=== PATIENT | female | born 1955 | race Caucasian/White ===

== ENCOUNTER → 2018-09-20 | Outpatient (CLI) | payer OTHER ==
[~2018-09-20] MED LIST: CIPR500 PO; CITA20 PO; CYCL10 PO; FLUT44OIA IH; HYDACE10B PO
== END ==
LOC: LAB SHORT 15:52 → LAB UCHC 15:52 → LAB 15:52
DX: L03.115 Cellulitis of right lower limb (principal)
CPT/HCPCS: 87070; 87075; 87076; 87205

== ENCOUNTER → 2019-10-26 | Outpatient (CLI) | payer OTHER ==
[~2019-10-26] MED LIST changes: +ONDA4ODT MM
[2019-10-26 18:46] LABS: BASOPHILS ABSOLUTE AUTO 0.06 K/mm3 (0.00-0.23); BASOPHILS PERCENT AUTO 1 % (0-2); EOSINOPHILS ABSOLUTE AUTO 0.33 K/mm3 (0.00-0.68); EOSINOPHILS PERCENT AUTO 3 % (0-6); Hematocrit 44.1 % (33.0-51.0); Hemoglobin 14.1 g/dL (11.5-16.0); IMMATURE GRAN PERCENT AUTO 1 % (0-1); LYMPHOCYTES ABSOLUTE AUTO 1.81 K/mm3 (0.84-5.20); LYMPHOCYTES PERCENT AUTO 17 % (21-46); MONOCYTES ABSOLUTE AUTO 0.51 K/mm3 (0.16-1.47); MONOCYTES PERCENT AUTO 5 % (4-13); Mean Corpuscular HGB 32.4 pg (26.0-34.0); Mean Corpuscular Volume 101 fL (80-100); Mean Platelet Volume 11.6 fL (9.1-12.4); NEUTROPHILS ABSOLUTE AUTO 7.81 K/mm3 (1.96-9.15); NEUTROPHILS PERCENT AUTO 74 % (41-73); Platelet Count 248 K/mm3 (150-400); RDW Coefficient Variation 13.4 % (11.7-14.2); RDW Standard Deviation 50.5 fL (35.1-46.3); Red Blood Cell Count 4.35 M/mm3 (3.80-5.20); White Blood Cell Count 10.62 K/mm3 (4.00-11.30)
[2019-10-26 19:45] LABS: Albumin, Blood 4.1 g/dL (3.4-5.0); Bilirubin, Direct 0.1 mg/dL (0.0-0.3); Bilirubin, Indirect 0.2 mg/dL (0.1-0.7); Bilirubin, Total 0.3 mg/dL (0.1-1.0); Globulin, Blood 4.2 g/dL (2.2-4.0); Total Protein, Blood 8.3 g/dL (6.4-8.2)
[2019-10-27 09:10] LABS: HBSAG SCREEN Negative (Negative); HEP A AB, IGM Negative (Negative); HEP B CORE AB, IGM Negative (Negative); HEP C VIRUS AB >11.0 (0.0-0.9)
== END ==
LOC: LAB SHORT 17:53 → LAB 17:53
PROVIDERS: Nurse Practitioner Family
DX: R10.11 Right upper quadrant pain (principal); F10.10 Alcohol abuse, uncomplicated
CPT/HCPCS: 80074; 80076; 85025

== ENCOUNTER 2022-09-16 08:01 | Day surgery (SDC) | payer OTHER ==
[~2022-09-16] VITALS: Ht 157.5 cm; Wt 64.3 kg
[2022-09-16] MEDS ORDERED: IBUP600 PO (08:49)
[2022-09-16] MEDS ORDERED: PROZAC40 MG PO (08:49)
[2022-09-16] MEDS ORDERED: LOSARTAN POTASS25 M2 PO (08:49)
[2022-09-16] MEDS ORDERED: HYDCHL25 (08:50)
[2022-09-16] MEDS ORDERED: ROSUVASTATIN CA20 MG PO (08:50)
[2022-09-16] MEDS ORDERED: Ventolin/Prove6.7 GM INH (08:51)
[2022-09-16] MEDS ORDERED: PREGABALIN75 MG PO (08:51)
[2022-09-16] MEDS ORDERED: Cetirizine HCl10 MG PO (08:51)
[2022-09-16] MEDS ORDERED: FLUTICASONE-SA1 EAC9 IH (08:51)
--- NOTE | 2022-09-16 08:56 | NUR ---
09/16/22 0856 Erin Hartman AT 0849 PLEDGET AT 0897
[2022-09-16 11:24] VITALS: BP 167/81
--- NOTE | 2022-09-16 11:38 | NUR ---
09/16/22 1138 EDY NICHOLS PT WAS TOLD BY DR QUICK THAT ACHEY EYE IS NORMAL FOR WHAT WAS DONE. INSTRUCTED TO TAKE HER USUAL PAIN MEDICIEN PRESCRIBED/DIRECTED ON LABEL.
== END 2022-09-16 11:39 | disposition home or self-care (01) ==
LOC: ORSCSDS 08:01
PROVIDERS: Student in an Organized Health Care Education/Training Program
PROC: 08RJ3JZ Replacement of Right Lens with Synthetic Substitute, Percutaneous Approach (ICD-10-PCS; principal; 2022-09-16 09:30)
DX: H25.13 Age-related nuclear cataract, bilateral (principal); I10 Essential (primary) hypertension; J44.9 Chronic obstructive pulmonary disease, unspecified; F17.210 Nicotine dependence, cigarettes, uncomplicated; E78.00 Pure hypercholesterolemia, unspecified; Z79.899 Other long term (current) drug therapy
CPT/HCPCS: 82947; J1120; J2250; J3010; J7040; V2632

== ENCOUNTER 2022-10-07 06:59 | Day surgery (SDC) | payer OTHER ==
[~2022-10-07] VITALS: Ht 157.5 cm; Wt 65.2 kg
[~2022-10-07 06:59] MED LIST changes: +Cetirizine HCl10 MG PO; +FLUTICASONE-SA1 EAC9 IH; +HYDCHL25; +IBUP600 PO; +LOSARTAN POTASS25 M2 PO; +PREGABALIN75 MG PO; +PROZAC40 MG PO; +ROSUVASTATIN CA20 MG PO; +Ventolin/Prove6.7 GM INH
--- NOTE | 2022-10-07 07:39 | NUR ---
10/07/22 0739 Anastasiya Gonzalez TETRACAINE TO LEFT EYE AT 0736 PLEDGET TO LEFT EYE AT 0737 BY [facility].LILY
[2022-10-07 08:51] VITALS: BP 148/70
--- NOTE | 2022-10-07 09:19 | NUR ---
10/07/22 0919 Waylon Belcher IV REMOVED INTACT. SITE WNL.
== END 2022-10-07 09:10 | disposition home or self-care (01) ==
LOC: ORSCSDS 06:59
PROVIDERS: Student in an Organized Health Care Education/Training Program
PROC: 08RK3JZ Replacement of Left Lens with Synthetic Substitute, Percutaneous Approach (ICD-10-PCS; principal; 2022-10-07 08:30)
DX: E11.36 Type 2 diabetes mellitus with diabetic cataract (principal); H25.12 Age-related nuclear cataract, left eye; Z96.1 Presence of intraocular lens; I10 Essential (primary) hypertension; J44.9 Chronic obstructive pulmonary disease, unspecified; R06.02 Shortness of breath; F17.210 Nicotine dependence, cigarettes, uncomplicated; Z79.899 Other long term (current) drug therapy
CPT/HCPCS: 82947; J2250; J7040; V2632

== ENCOUNTER → 2024-09-13 | Outpatient (CLI) | payer MEDICARE ==
[2024-09-14 15:07] LABS: Stool Occult Bld Immuno 1 Negative (NEGATIVE)
== END ==
LOC: LAB 13:25 → LAB SHORT 13:25
PROVIDERS: Physician Assistant
DX: Z12.11 Encounter for screening for malignant neoplasm of colon (principal)
CPT/HCPCS: G0328

== ENCOUNTER 2024-10-30 15:15 | Inpatient (IN) | payer MEDICARE ==
[~2024-10-30] VITALS: Ht 157.5 cm; Wt 59.8 kg
[~2024-10-30 15:15] MED LIST changes: -HYDCHL25; +HYDCHL25 PO; -PROZAC40 MG PO; +Prozac40 MG PO
[2024-10-30] MEDS ORDERED: NS 1,000 ML IV SCH (18:05)
[2024-10-30] MEDS ORDERED: OxyCODONE 5 mg/Acetamin 325 mg TABLET PO PRN (18:05)
[2024-10-30] MEDS ORDERED: FentaNYL Citrate 50 MCG/ML 2 ML Injection IV PRN ×2 (18:05→19:45)
[2024-10-30] MEDS ORDERED: Albuterol 2.5 MG/3 ML VIAL INH PRN (18:05)
[2024-10-30] MEDS ORDERED: FLU VACC TS2025-26(6MOS UP)/PF 45 MCG/0.5 ML SYRINGE IM ONE (18:10)
[2024-10-30] MEDS ORDERED: Ondansetron HCl 2 MG / ML 2ML Vial IV PRN (18:10)
[2024-10-30 18:11] LABS: BASOPHILS ABSOLUTE AUTO 0.05 K/mm3 (0.00-0.23); BASOPHILS PERCENT AUTO 0 % (0-2); EOSINOPHILS ABSOLUTE AUTO 0.09 K/mm3 (0.00-0.68); EOSINOPHILS PERCENT AUTO 1 % (0-6); Hematocrit 39.6 % (33.0-51.0); Hemoglobin 13.3 g/dL (11.5-16.0); IMMATURE GRAN ABSOLUTE AUTO 0.04 K/mm3 (0.00-0.10); IMMATURE GRAN PERCENT AUTO 0 % (0-1); LYMPHOCYTES ABSOLUTE AUTO 1.02 K/mm3 (0.84-5.20); LYMPHOCYTES PERCENT AUTO 7 % (21-46); MONOCYTES ABSOLUTE AUTO 0.59 K/mm3 (0.16-1.47); MONOCYTES PERCENT AUTO 4 % (4-13); Mean Corpuscular HGB Conc 33.6 g/dL (31.5-36.5); Mean Corpuscular Volume 95 fL (80-100); NEUTROPHILS ABSOLUTE AUTO 13.64 K/mm3 (1.96-9.15); NEUTROPHILS PERCENT AUTO 88 % (41-73); NRBC ABSOLUTE 0.00 K/mm3 (0.00-0.02); NRBC Auto 0.0 /100 WBC (0.0-0.2); Platelet Count 173 K/mm3 (150-400); RDW Coefficient Variation 13.0 % (11.7-14.2); RDW Standard Deviation 45.3 fL (35.1-46.3)
[2024-10-30 18:27] LABS: Prothrombin Time Results 10.9 Sec (9.7-11.5)
[2024-10-30 18:36] LABS: Anion Gap 12 mmol/L (3-11); Blood Urea Nitrogen 18 mg/dL (8-24); CO2, Blood 22 mmol/L (21-32); Calcium, Blood 8.5 mg/dL (8.5-10.1); Chloride, Blood 106 mmol/L (98-108); Creatinine, Blood 0.75 mg/dL (0.40-1.00); Ethanol (Alcohol), Blood, Med <3 mg/dL; Glucose, Blood 100 mg/dL (70-99); Potassium, Blood 4.3 mmol/L (3.5-5.5); Sodium, Blood 136 mmol/L (136-145)
[2024-10-30] MEDS ORDERED: Formoterol/Mometasone MDI 5/200 mcg 13 GM INH SCH (19:35)
[2024-10-30 20:05] VITALS: BP 159/78
[2024-10-31] VITALS (13 sets, daily range): BP systolic 102–154; BP diastolic 53–79
[2024-10-31 05:25] LABS: Hematocrit 37.9 % (33.0-51.0); Hemoglobin 12.4 g/dL (11.5-16.0); Mean Corpuscular HGB Conc 32.7 g/dL (31.5-36.5); Mean Corpuscular Volume 97 fL (80-100); NRBC ABSOLUTE 0.00 K/mm3 (0.00-0.02); NRBC Auto 0.0 /100 WBC (0.0-0.2); Platelet Count 161 K/mm3 (150-400); RDW Coefficient Variation 13.2 % (11.7-14.2); RDW Standard Deviation 47.5 fL (35.1-46.3)
[2024-10-31 05:53] LABS: Anion Gap 7.0 mmol/L (3-11); Blood Urea Nitrogen 19.0 mg/dL (8-24); CO2, Blood 25.0 mmol/L (21-32); Calcium, Blood 8.1 mg/dL (8.5-10.1); Chloride, Blood 110.0 mmol/L (98-108); Creatinine, Blood 0.65 mg/dL (0.40-1.00); Glucose, Blood 104.0 mg/dL (70-99); Potassium, Blood 3.9 mmol/L (3.5-5.5); Sodium, Blood 138.0 mmol/L (136-145)
[2024-10-31] MEDS ORDERED: Folic Acid 1 MG TAB PO SCH (09:00)
[2024-10-31] MEDS ORDERED: Multivitamins 1 Tab PO SCH (09:00)
[2024-10-31] MEDS ORDERED: MOBIC15 MG PO (11:16)
[2024-10-31 12:57] LABS: U Amphetamine Screen DETECTED; U Barbituate Screen Not Detected; U Benzodiazapine Screen DETECTED; U Cannabinoids Screen DETECTED; U Cocaine Screen Not Detected; U Methadone Screen Not Detected; U Methamphetamine Screen DETECTED; U Opiates Screen Not Detected; U Oxycodone Screen DETECTED
[2024-10-31 12:58] LABS: U Buprenorphine Screen Not Detected; U Phencyclidine Screen Not Detected
[2024-10-31] MEDS ORDERED: CeFAZolin Sodium 2,000 MG in NS 100 ML IV SCH (13:40)
[2024-10-31] MEDS ORDERED: Ropivacaine 0.5% HCl/Pf 123.125 MG,EPINEPHrine HCL 0.25 MG,Ketorolac Tromethamine 15 MG... INFIL SCH (13:40)
[2024-10-31] MEDS ORDERED: Tranexamic Acid 100 ML IV SCH (13:40)
[2024-10-31] MEDS ORDERED: Chlorhexidine Mouth Care 15 ML UDC MT SCH (13:40)
[2024-10-31] MEDS ORDERED: FentaNYL Citrate 50 MCG/ML 2 ML Injection ONE (14:01)
[2024-10-31] MEDS ORDERED: Midazolam HCl 1MG / ML 2ML Vial ONE (14:11)
[2024-10-31] MEDS ORDERED: Ketamine HCl 100 MG / ML 5ML Vial ONE (14:13)
[2024-10-31] MEDS ORDERED: HYDROmorphone HCl/Pf 1MG SYR IV PRN ×2 (16:15→16:20)
[2024-10-31] MEDS ORDERED: FentaNYL Citrate 50 MCG/ML 2 ML Injection IV PRN ×2 (16:15→16:20)
[2024-10-31] MEDS ORDERED: Ondansetron HCl 2 MG / ML 2ML Vial IV PRN (16:15)
[2024-11-01 04:01] VITALS: BP 116/56
[2024-11-01 07:58] VITALS: BP 118/71
[2024-11-01] MEDS ORDERED: OxyCODONE 5 mg/Acetamin 325 mg TABLET PO PRN (09:50)
[2024-11-01 12:07] LABS: Hematocrit 31.0 % (33.0-51.0); Hemoglobin 9.9 g/dL (11.5-16.0); Mean Corpuscular HGB Conc 31.9 g/dL (31.5-36.5); Mean Corpuscular Volume 101 fL (80-100); NRBC ABSOLUTE 0.00 K/mm3 (0.00-0.02); NRBC Auto 0.0 /100 WBC (0.0-0.2); Platelet Count 150 K/mm3 (150-400); RDW Coefficient Variation 13.3 % (11.7-14.2); RDW Standard Deviation 49.3 fL (35.1-46.3)
[2024-11-01 12:25] LABS: Anion Gap 8.0 mmol/L (3-11); Blood Urea Nitrogen 17.0 mg/dL (8-24); CO2, Blood 21.0 mmol/L (21-32); Calcium, Blood 7.9 mg/dL (8.5-10.1); Chloride, Blood 108.0 mmol/L (98-108); Creatinine, Blood 0.84 mg/dL (0.40-1.00); Glucose, Blood 110.0 mg/dL (70-99); Potassium, Blood 4.2 mmol/L (3.5-5.5); Sodium, Blood 133.0 mmol/L (136-145)
[2024-11-01 14:28] VITALS: BP 97/55
[2024-11-01 19:21] VITALS: BP 111/55
[2024-11-01 23:45] VITALS: BP 122/71
[2024-11-02 04:27] VITALS: BP 113/65
[2024-11-02 07:24] VITALS: BP 115/61
[2024-11-02 09:05] LABS: Anion Gap 8.0 mmol/L (3-11); Blood Urea Nitrogen 16.0 mg/dL (8-24); CO2, Blood 27.0 mmol/L (21-32); Calcium, Blood 8.1 mg/dL (8.5-10.1); Chloride, Blood 102.0 mmol/L (98-108); Creatinine, Blood 0.76 mg/dL (0.40-1.00); Glucose, Blood 101.0 mg/dL (70-99); Potassium, Blood 4.2 mmol/L (3.5-5.5); Sodium, Blood 133.0 mmol/L (136-145)
[2024-11-02] MEDS ORDERED: DOCU100 PO (11:16)
[2024-11-02] MEDS ORDERED: Percocet 5-3251 EACH PO (11:17)
[2024-11-02] MEDS ORDERED: B-1100 M1 PO (11:18)
[2024-11-02] MEDS ORDERED: SENNA LAXATIVE8.6 MG PO (11:18)
== END 2024-11-02 14:59 | disposition home health service (06) | DRG 522 ==
LOC: ER 15:15 → SURS 18:02
PROVIDERS: Internal Medicine; Nurse Practitioner Acute Care; Orthopaedic Surgery; Student in an Organized Health Care Education/Training Program; ADMIT Student in an Organized Health Care Education/Training Program
PROC: 0SRB03Z Replacement of Left Hip Joint with Ceramic Synthetic Substitute, Open Approach (ICD-10-PCS; principal; 2024-10-31 13:30)
DX: S72.032A Displaced midcervical fracture of left femur, initial encounter for closed fracture (principal); E87.1 Hypo-osmolality and hyponatremia; F10.239 Alcohol dependence with withdrawal, unspecified; J44.9 Chronic obstructive pulmonary disease, unspecified; I10 Essential (primary) hypertension; E78.5 Hyperlipidemia, unspecified; F15.10 Other stimulant abuse, uncomplicated; F12.10 Cannabis abuse, uncomplicated; F17.210 Nicotine dependence, cigarettes, uncomplicated; F41.9 Anxiety disorder, unspecified; F32.A Depression, unspecified; G62.9 Polyneuropathy, unspecified; K59.00 Constipation, unspecified; Z79.899 Other long term (current) drug therapy; W11.XXXA Fall on and from ladder, initial encounter; Y92.009 Unspecified place in unspecified non-institutional (private) residence as the place of occurrence of the external cause
CPT/HCPCS: 36415; 51702; 70450; 72125; 73502; 73552; 80048; 80320; 83735; 85025; 85027; 85610; 93005; 93010; 94640; 94664; 94760; 97116; 97162; 97530; 99285-25; A9270; C1776; J0166; J0690; J0735; J1885; J2250; J2704; J2795; J3010; J7030; J7120

== ENCOUNTER → 2024-11-11 | Outpatient (CLI) | payer MEDICARE ==
[~2024-11-11] MED LIST changes: +B-1100 M1 PO; +DOCU100 PO; +MOBIC15 MG PO; +Percocet 5-3251 EACH PO; +SENNA LAXATIVE8.6 MG PO
[2024-11-11 13:57] LABS: BASOPHILS ABSOLUTE AUTO 0.07 K/mm3 (0.00-0.23); BASOPHILS PERCENT AUTO 1 % (0-2); EOSINOPHILS ABSOLUTE AUTO 0.19 K/mm3 (0.00-0.68); EOSINOPHILS PERCENT AUTO 2 % (0-6); Hematocrit 32.6 % (33.0-51.0); Hemoglobin 10.5 g/dL (11.5-16.0); IMMATURE GRAN ABSOLUTE AUTO 0.05 K/mm3 (0.00-0.10); IMMATURE GRAN PERCENT AUTO 1 % (0-1); LYMPHOCYTES ABSOLUTE AUTO 1.54 K/mm3 (0.84-5.20); LYMPHOCYTES PERCENT AUTO 15 % (21-46); MONOCYTES ABSOLUTE AUTO 0.49 K/mm3 (0.16-1.47); MONOCYTES PERCENT AUTO 5 % (4-13); Mean Corpuscular HGB Conc 32.2 g/dL (31.5-36.5); Mean Corpuscular Volume 96 fL (80-100); NEUTROPHILS ABSOLUTE AUTO 8.10 K/mm3 (1.96-9.15); NEUTROPHILS PERCENT AUTO 78 % (41-73); NRBC ABSOLUTE 0.00 K/mm3 (0.00-0.02); NRBC Auto 0.0 /100 WBC (0.0-0.2); Platelet Count 384 K/mm3 (150-400); RDW Coefficient Variation 13.2 % (11.7-14.2); RDW Standard Deviation 46.4 fL (35.1-46.3)
[2024-11-11 14:06] LABS: Alanine Aminotransfer (ALT/SGP 23.0 U/L (12-78); Albumin, Blood 3.1 g/dL (3.4-5.0); Albumin/Globulin Ratio 0.7 (0.8-1.8); Anion Gap 11.0 mmol/L (3-11); Aspartate Aminotrans (AST/SGOT 23.0 U/L (12-37); Bilirubin, Total 0.3 mg/dL (0.1-1.0); Blood Urea Nitrogen 17.0 mg/dL (8-24); CO2, Blood 29.0 mmol/L (21-32); Calcium, Blood 8.8 mg/dL (8.5-10.1); Chloride, Blood 102.0 mmol/L (98-108); Creatinine, Blood 0.79 mg/dL (0.40-1.00); Globulin, Blood 4.2 g/dL (2.2-4.0); Glucose, Blood 102.0 mg/dL (70-99); Potassium, Blood 4.3 mmol/L (3.5-5.5); Sodium, Blood 138.0 mmol/L (136-145); Total Protein, Blood 7.3 g/dL (6.4-8.2)
== END ==
LOC: LAB 13:49 → LAB SHORT 13:49
DX: M25.552 Pain in left hip (principal)
CPT/HCPCS: 80053; 85025; 85651; 86140

== ENCOUNTER → 2024-11-24 | Outpatient (CLI) | payer MEDICARE ==
[2024-11-24 12:00] LABS: BASOPHILS ABSOLUTE AUTO 0.06 K/mm3 (0.00-0.23); BASOPHILS PERCENT AUTO 1 % (0-2); EOSINOPHILS ABSOLUTE AUTO 0.24 K/mm3 (0.00-0.68); EOSINOPHILS PERCENT AUTO 3 % (0-6); Hematocrit 38.4 % (33.0-51.0); Hemoglobin 12.2 g/dL (11.5-16.0); IMMATURE GRAN ABSOLUTE AUTO 0.06 K/mm3 (0.00-0.10); IMMATURE GRAN PERCENT AUTO 1 % (0-1); LYMPHOCYTES ABSOLUTE AUTO 1.44 K/mm3 (0.84-5.20); LYMPHOCYTES PERCENT AUTO 18 % (21-46); MONOCYTES ABSOLUTE AUTO 0.46 K/mm3 (0.16-1.47); MONOCYTES PERCENT AUTO 6 % (4-13); Mean Corpuscular HGB Conc 31.8 g/dL (31.5-36.5); Mean Corpuscular Volume 97 fL (80-100); NEUTROPHILS ABSOLUTE AUTO 5.76 K/mm3 (1.96-9.15); NEUTROPHILS PERCENT AUTO 72 % (41-73); NRBC ABSOLUTE 0.00 K/mm3 (0.00-0.02); NRBC Auto 0.0 /100 WBC (0.0-0.2); Platelet Count 295 K/mm3 (150-400); RDW Coefficient Variation 13.3 % (11.7-14.2); RDW Standard Deviation 47.7 fL (35.1-46.3)
[2024-11-24 12:10] LABS: Alanine Aminotransfer (ALT/SGP 14.0 U/L (12-78); Albumin, Blood 3.7 g/dL (3.4-5.0); Albumin/Globulin Ratio 0.9 (0.8-1.8); Anion Gap 15.0 mmol/L (3-11); Aspartate Aminotrans (AST/SGOT 18.0 U/L (12-37); Bilirubin, Total 0.4 mg/dL (0.1-1.0); Blood Urea Nitrogen 14.0 mg/dL (8-24); CO2, Blood 25.0 mmol/L (21-32); Calcium, Blood 9.1 mg/dL (8.5-10.1); Chloride, Blood 103.0 mmol/L (98-108); Creatinine, Blood 0.77 mg/dL (0.40-1.00); Globulin, Blood 4.1 g/dL (2.2-4.0); Glucose, Blood 99.0 mg/dL (70-99); Potassium, Blood 3.8 mmol/L (3.5-5.5); Sodium, Blood 139.0 mmol/L (136-145); Total Protein, Blood 7.8 g/dL (6.4-8.2)
== END | disposition home or self-care (01) ==
LOC: LAB 11:55 → LAB SHORT 11:55
DX: R10.11 Right upper quadrant pain (principal)
CPT/HCPCS: 80053; 83690; 85025